=== PATIENT | female | born 1965 | race Caucasian/White ===

== ENCOUNTER 2018-11-02 10:05 | Inpatient (IN) | payer MEDICAID ==
[~2018-11-02] VITALS: Ht 167.6 cm; Wt 90.7 kg
[2018-11-02] MEDS ORDERED: COZAAR25 MG PO (10:14)
[2018-11-02 10:42] LABS: BASOPHILS 0.1 % (0-2); EOSINOPHILS 0 % (0-7); HEMATOCRIT 44.2 % (36.0-48.0); HEMOGLOBIN 15.7 g/dL (12-16); IMMATURE GRANULOCYTES 0.4 % (0-5); LYMPHOCYTES 3.7 % (15-50); MCH 32.4 pg (26.0-34.0); MCHC 35.5 g/dL (31.0-37.0); MCV 91.1 fL (80.0-100.0); MEAN PLATELET VOLUME 9.7 fL (7.4-10.4); MONOCYTES 2.5 % (2-11); NEUTROPHILS 93.3 % (40-80); PLATELET COUNT 272 10x3/uL (130-400); RBC 4.85 10x6/uL (4.00-5.40); RDW 13.5 % (11.5-14.5); WBC 19.3 10x3/uL (4.8-10.8)
[2018-11-02 10:54] LABS: APPEARANCE HAZY (CLEAR); BILIRUBIN NEGATIVE (NEGATIVE); COLOR YELLOW (YELLOW); GLUCOSE NEGATIVE (NEGATIVE); KETONE SMALL mg/dL (NEGATIVE); NITRITE NEGATIVE (NEGATIVE); PROTEIN 3+ mg/dL (NEGATIVE); SPECIFIC GRAVITY 1.015 (1.005-1.020); UROBILINOGEN NORMAL (NORMAL)
[2018-11-02 10:56] LABS: BACTERIA FEW /hpf (NONE SEEN); EPITHELIAL CELLS 0-5 /hpf (0-5); RED CELLS - URINE 0-5 /hpf (0-5); WHITE CELLS - URINE 0-5 /hpf (0-5)
[2018-11-02 11:02] LABS: ALBUMIN 2.8 g/dL (3.4-5.0); ANION GAP 14.9 mmol/L (8-16); BILIRUBIN - TOTAL 0.96 mg/dL (0.2-1.3); CALCIUM 8.6 mg/dL (8.5-10.1); CARBON DIOXIDE 25.6 mmol/L (21.0-32.0); CREATININE - SERUM 1.1 mg/dL (0.6-1.3); POTASSIUM - SERUM 3.5 mmol/L (3.5-5.1); PROTEIN - SERUM 8.5 g/dL (6.4-8.2)
[2018-11-02 13:27] VITALS: BP 152/88
--- NOTE | 2018-11-02 13:46 | NUR ---
PT ARRIVED TO UNIT TO ROOM 2221 IN WHEELCHAIR FROM ER IN STABLE CONDITON, FAMILY AT BEDSIDE, ORRIENTED TO ROOM, CL IN REACH WILL CONTINUE TO MONITOR
--- NOTE | 2018-11-02 13:47 | MORECARE ---
CASE MANAGEMENT DISCHARGE SUMMARY PATIENT: JORGE CHAIREZ UNIT: [id number] ADM DATE: 11/02/18 AGE: 53 : 63 SEX: F ROOM/BED: D.2222 AUTHOR: ANTHONY BUCHANAN PHYSICIAN: REFERRING PHYSICIAN: DONNA DAY MD DATE OF SERVICE: 11/02/18 Discharge Plan Patient Name: JORGE CHAIREZ [facility] [facility] 1965 Planned Disposition: Home Anticipated Discharge Date: 11/04/18 Discharge Date: Expected LOS: 2 Initial Reviewer: [email or web address] Initial Review Date: 11/02/2018 Generated: 11/02/18 2:47 pm Patient Name: JORGE CHAIREZ Page 22194 at 1347 All edits/amendments must be made on the electronic document DICTATION DATE: 11/02/18 1347 PUBLIC RELATIONS SENIOR ASSOCIATE: CATALINA 11/02/18 1347 RPT#: [id number] DC DATE: STATUS: ADM IN [facility] [address] [place] [address] END OF REPORT
--- NOTE | 2018-11-02 13:55 | MORECARE ---
CASE MANAGEMENT DISCHARGE SUMMARY PATIENT: JORGE MUNOZ UNIT: [id number] ADM DATE: 11/02/18 AGE: 53 : 63 SEX: F ROOM/BED: D.2222 AUTHOR: CHANEL,DOC PHYSICIAN: REFERRING PHYSICIAN: DONNA DAY MD DATE OF SERVICE: 11/02/18 Discharge Plan Patient Name: JORGE MUNOZ Facility: [facility]:[place] : 1965 Planned Disposition: Home Anticipated Discharge Date: 11/04/18 Discharge Date: Expected LOS: 2 Initial Reviewer: [email or web address] Initial Review Date: 11/02/2018 Generated: 11/02/18 2:55 pm DCP- Discharge Planning Updated by [email or web address]: Reina Pittman on 11/02/18 12:[address] Patient Name: JORGE MUNOZ Admission Status: ER Accout number: [id number] Admission Date: 11-02-2018 : 1965 Admission Diagnosis: Attending: DONNA DAY Current LOS: 1 Anticipated DC Date: 11-04-2018 Planned Disposition: Home Primary Insurance: UNINSURED DISCOUNT PLAN Discharge Planning Comments: CM met with patient and her , Rommel to complete initial dc planning assessment. CM educated patient on the CM role and verbal consent given by patient to complete assessment. Patient lives at home independently with her . At discharge patient plans to return home and feels this is a safe discharge. CM discussed availability of home health, rehab services, and medical equipment. Patient denied known discharge needs at this time. CM will continue to follow and will assist as needed with dc plans/needs. Icing Machine Operator: Reina Pittman RN, [facility] DCPIA - Discharge Planning Initial Assessment Updated by [email or web address]: Reina Pittman on 11/02/18 1:47 pm * Is the patient Alert and Oriented? Yes * How many steps to enter\exit or inside your home? * PCP Don't have a PCP. Moved here in July. * Pharmacy [facility] [address] * Preadmission Environment Home with Family * ADLs Independent * Equipment None * List name and contact numbers for known caregivers / representatives who currently or will assist patient after discharge: Rommel Munoz - spouse - [phone] * Verbal permission to speak to the caregivers and representatives has been obtained from the patient. Yes * Community resources currently utilized None * Additional services required to return to the preadmission environment? No * Can the patient safely return to the preadmission environment? Yes * Has this patient been hospitalized within the prior 30 days at any hospital? No Last DP export: 11/02/18 12:47 pm Patient Name: JORGE MUNOZ Page [id number] at 1355 All edits/amendments must be made on the electronic document DICTATION DATE: 11/02/18 1354 BOAT WASHER: CATALINA 11/02/18 1354 RPT#: [id number] DC DATE: STATUS: ADM IN [facility] [address] [place] [address] END OF REPORT
[2018-11-02 16:14] VITALS: BP 155/83
[2018-11-02 18:17] VITALS: BP 158/83
--- NOTE | 2018-11-02 19:00 | NUR ---
BEDSIDE REPORT RECEIVED AND CARE OF PT ASSUMED. PT RESTING IN SUPINE POSITION. O2 IN USE VIA NC AT 2L. IV IN RIGHT AC PATENT WITH NS INFUSING AT 125 ML / HR. WILL MONITOR FOR NEEDS.
[2018-11-02 21:04] VITALS: BP 123/81
--- NOTE | 2018-11-02 21:18 | NUR ---
HS MEDICATIONS GIVEN TO INCLUDE TYLENOL PER PRN ORDER FOR ELEVATED TEMP OF 100.6 DEGREES. WILL CONTINUE TO MONITOR FOR NEEDS.
[2018-11-03 00:11] VITALS: BP 124/72
[2018-11-03 04:36] VITALS: BP 145/85
[2018-11-03 05:46] LABS: BASOPHILS 0 % (0-2); EOSINOPHILS 0 % (0-7); HEMATOCRIT 37.9 % (36.0-48.0); HEMOGLOBIN 13.2 g/dL (12-16); IMMATURE GRANULOCYTES 0.9 % (0-5); LYMPHOCYTES 3.7 % (15-50); MCH 31.7 pg (26.0-34.0); MCHC 34.8 g/dL (31.0-37.0); MCV 90.9 fL (80.0-100.0); MEAN PLATELET VOLUME 9.4 fL (7.4-10.4); MONOCYTES 2.5 % (2-11); NEUTROPHILS 92.9 % (40-80); PLATELET COUNT 266 10x3/uL (130-400); RBC 4.17 10x6/uL (4.00-5.40); RDW 13.9 % (11.5-14.5); WBC 19.2 10x3/uL (4.8-10.8)
[2018-11-03 06:34] LABS: ALKALINE PHOSPHATASE 63 U/L (46-116); ALT (SGPT) 23 U/L (10-68); BILIRUBIN - TOTAL 0.62 mg/dL (0.2-1.3); CALC OSMOLALITY 254 mosm/kg (275-300); CALCIUM 7.5 mg/dL (8.5-10.1); CARBON DIOXIDE 22.9 mmol/L (21.0-32.0); CHLORIDE - SERUM 92 mmol/L (98-107); CREATININE - SERUM 0.7 mg/dL (0.6-1.3); GLUCOSE 121 mg/dL (74-106); POTASSIUM - SERUM 3.3 mmol/L (3.5-5.1); PROTEIN - SERUM 6.6 g/dL (6.4-8.2); SODIUM 127 mmol/L (136-145); UREA NITROGEN 10 mg/dL (7-18)
[2018-11-03 06:35] LABS: eGFR NON AFRICAN AMERICAN > 90 mL/min (90-120)
[2018-11-03 08:29] VITALS: BP 113/49
--- NOTE | 2018-11-03 10:20 | NUR ---
PT SAT UP IN CHAIR AT BEDSIDE FOR BREAKFAST, ASKED TO BE SL DUE TO IV POLE IN THE WAY OF HER TRYING TO GET TO RESTROOM, WHEEZING IN UPPER LOBES IN INHALATION, NO OTHER NEEDS VOICED, CONTINUE WITH PLAN OF CARE
--- NOTE | 2018-11-03 10:27 | NUR ---
PT REQUESTED PRN PAIN MEDICATION FOR CHÁVEZ AT A 5 FROM SCALE OF 0-10, ADMINISTERED PRN MEDS PER MAR
[2018-11-03 13:12] VITALS: Ht 167.6 cm; Wt 90.7 kg
--- NOTE | 2018-11-03 14:01 | NUR ---
I have reviewed this patient and I concur with the Shift Assessment completed by the Licensed Practical Nurse today this shift.
--- NOTE | 2018-11-03 14:02 | NUR ---
PT LYING IN BED ASLEEP WITH SPOUSE AT BEDSIDE, PT BREATHING RASPY, SPOUSE STATED PT DOES NOT WEAR O2 AT HOME, PT WAS NOT WEARING O2 WHEN I CAME IN AND STATING AT 85%. ADVISED PT SHE MUST WEAR IT BECAUSE WHEN SHE FALLS ASLEEP HER O2 DROPS, PT AND SPOUSE EXPRESSED UNDERSTANDING. CONTINUE WITH PLAN OF CARE
--- NOTE | 2018-11-03 14:33 | NUR ---
I have reviewed this patient and I concur with the Shift Assessment completed by the Licensed Practical Nurse today this shift.
[2018-11-03 16:47] VITALS: BP 146/92
[2018-11-03 20:00] VITALS: BP 142/63
[2018-11-04 04:00] VITALS: BP 127/80
[2018-11-04 05:57] LABS: BASOPHILS 0.1 % (0-2); EOSINOPHILS 0 % (0-7); HEMATOCRIT 36.3 % (36.0-48.0); HEMOGLOBIN 12.7 g/dL (12-16); LYMPHOCYTES 3.3 % (15-50); MCH 31.5 pg (26.0-34.0); MCV 90.1 fL (80.0-100.0); MEAN PLATELET VOLUME 9.4 fL (7.4-10.4); MONOCYTES 3.4 % (2-11); NEUTROPHILS 92.2 % (40-80); PLATELET COUNT 295 10x3/uL (130-400); RBC 4.03 10x6/uL (4.00-5.40); RDW 14.1 % (11.5-14.5); WBC 19.2 10x3/uL (4.8-10.8)
[2018-11-04 06:25] LABS: ALBUMIN 1.9 g/dL (3.4-5.0); ALKALINE PHOSPHATASE 71 U/L (46-116); BILIRUBIN - TOTAL 0.43 mg/dL (0.2-1.3); CALCIUM 7.6 mg/dL (8.5-10.1); CARBON DIOXIDE 23.4 mmol/L (21.0-32.0); CHLORIDE - SERUM 94 mmol/L (98-107); CREATININE - SERUM 0.7 mg/dL (0.6-1.3); POTASSIUM - SERUM 3.7 mmol/L (3.5-5.1); PROTEIN - SERUM 6.9 g/dL (6.4-8.2); SODIUM 130 mmol/L (136-145); UREA NITROGEN 11 mg/dL (7-18); eGFR NON AFRICAN AMERICAN > 90 mL/min (90-120)
[2018-11-04 06:26] LABS: ALT (SGPT) 37 U/L (10-68); CALC OSMOLALITY 265 mosm/kg (275-300); GLUCOSE 204 mg/dL (74-106)
--- NOTE | 2018-11-04 07:03 | NUR ---
IV LEAKING AND REMOVED.
--- NOTE | 2018-11-04 07:30 | NUR ---
RECEIVED A/A/OX4. DENIES ANY PAIN OR DISCOMFORT AT PRESENT TIME AND VOICES NO REQUESTS. ASSESSMENT COMPLETED. BED IN LOWEST POSITION WITH WHEELS LOCKED, SIDERAILS UP X2 AND CALL LIGHT IN REACH. WILL CONTINUE POC.
[2018-11-04 09:24] VITALS: BP 118/72
[2018-11-04 12:00] VITALS: BP 115/76
[2018-11-04 17:43] VITALS: BP 120/74
[2018-11-04 20:00] VITALS: BP 130/89
--- NOTE | 2018-11-04 20:00 | NUR ---
ASSESSMENT PER FLOWSHEET. IV PATENT RT ARM SALINE LOCKED. IV PUMP HAD BEEN TURNED OFF. PT REFUSED TO HAVE FLUIDS GOING PT ALSO UPSET WITH DAYS SHIFT NURSE SHE HAD TOLD HER IT HAD BEEPING FOR A LONG TIME AND THE NURSE NEVER CAME BACK.
--- NOTE | 2018-11-04 21:35 | NUR ---
C/O HEADACHE TYLENOL 650MG PO GIVEN FOR PAIN CONTROL. IV LEFT AT SALINE LOCKED PT TAKING PO WELL.WILL CONNECT WHEN TIME FOR ANY ANTIBIOTICS. PT ON ROOM AIR. SITTING ON SIDE OF BED.
--- NOTE | 2018-11-05 00:19 | NUR ---
EYES CLOSED RESPIRATIONS WITH EASE AND UNLABORED.
[2018-11-05 04:00] VITALS: BP 130/85
[2018-11-05 05:56] LABS: BASOPHILS 0.1 % (0-2); EOSINOPHILS 0 % (0-7); HEMOGLOBIN 12.4 g/dL (12-16); IMMATURE GRANULOCYTES 1.5 % (0-5); LYMPHOCYTES 4.2 % (15-50); MCH 31.6 pg (26.0-34.0); MCHC 34.4 g/dL (31.0-37.0); MCV 91.8 fL (80.0-100.0); MEAN PLATELET VOLUME 9.6 fL (7.4-10.4); MONOCYTES 3.3 % (2-11); NEUTROPHILS 90.9 % (40-80); PLATELET COUNT 353 10x3/uL (130-400); RBC 3.92 10x6/uL (4.00-5.40); RDW 14.4 % (11.5-14.5); WBC 17.9 10x3/uL (4.8-10.8)
[2018-11-05 06:03] LABS: ALBUMIN 1.9 g/dL (3.4-5.0); ALKALINE PHOSPHATASE 85 U/L (46-116); BILIRUBIN - TOTAL 0.37 mg/dL (0.2-1.3); CARBON DIOXIDE 27.9 mmol/L (21.0-32.0); CHLORIDE - SERUM 96 mmol/L (98-107); CREATININE - SERUM 0.8 mg/dL (0.6-1.3); GLUCOSE 226 mg/dL (74-106); PROTEIN - SERUM 6.6 g/dL (6.4-8.2); SODIUM 134 mmol/L (136-145); eGFR NON AFRICAN AMERICAN 79 mL/min (90-120)
[2018-11-05 06:14] LABS: ALT (SGPT) 126 U/L (10-68); CALC OSMOLALITY 275 mosm/kg (275-300); POTASSIUM - SERUM 4.4 mmol/L (3.5-5.1); UREA NITROGEN 14 mg/dL (7-18)
[2018-11-05 09:51] VITALS: BP 133/76
[2018-11-05] MEDS ORDERED: ALBUTEROL2.5 MG/3 M INH (13:15)
[2018-11-05] MEDS ORDERED: FLORAJEN3 CAPS460 MG PO (13:16)
[2018-11-05] MEDS ORDERED: PREDNISONE10 MG PO (13:16)
[2018-11-05] MEDS ORDERED: ZITHROMAX500 MG PO (13:16)
[2018-11-05] MEDS ORDERED: OMNICEF300 MG PO (13:16)
[2018-11-05] MEDS ORDERED: Nicoderm [PBKC] TRANSDERM (13:17)
[2018-11-05 14:03] VITALS: BP 116/65
--- NOTE | 2018-11-05 14:26 | MORECARE ---
CASE MANAGEMENT DISCHARGE SUMMARY PATIENT: JORGE MUNOZ UNIT: [id number] ADM DATE: 11/02/18 AGE: 53 : 63 SEX: F ROOM/BED: D.2222 AUTHOR: CHANEL,DOC PHYSICIAN: REFERRING PHYSICIAN: DONNA DYA MD DATE OF SERVICE: 11/05/18 Discharge Plan Patient Name: JORGE MUNOZ Facility: [facility]:[place] : 1965 Planned Disposition: Home Anticipated Discharge Date: 11/04/18 Discharge Date: Expected LOS: 2 Initial Reviewer: [email or web address] Initial Review Date: 11/02/2018 Generated: 11/05/18 3:26 pm Comments DCP- Discharge Planning Updated by [email or web address]: Tisha Morales on 11/05/18 1:[address] Received discharge orders. She is in agreement to discharge. States she only needs Medicaid. I called Brandon Tang in [employer] data and she states she should receive something in the mail in a couple of weeks when approved. Brandon states she can call her for updates if she would like to. I provided her with Brandon Tang's number [phone]. She declines need for DME or home health. CM will continue to follow and assist with discharge planning/needs. DCP- Discharge Planning Updated by [email or web address]: Reina Pittman on 11/02/18 12:[address] Patient Name: JOREG MUNOZ Admission Status: ER Accout number: [id number] Admission Date: 11-02-2018 : 1965 Admission Diagnosis: Attending: DONNA DAY Current LOS: 1 Anticipated DC Date: 11-04-2018 Planned Disposition: Home Primary Insurance: UNINSURED DISCOUNT PLAN Discharge Planning Comments: CM met with patient and her , Rommel to complete initial dc planning assessment. CM educated patient on the CM role and verbal consent given by patient to complete assessment. Patient lives at home independently with her . At discharge patient plans to return home and feels this is a safe discharge. CM discussed availability of home health, rehab services, and medical equipment. Patient denied known discharge needs at this time. CM will continue to follow and will assist as needed with dc plans/needs. Weight And Balance Control Agent: Reina Pittman RN, [facility] DCPIA - Discharge Planning Initial Assessment Updated by [email or web address]: Reina Pittman on 11/02/18 1:47 pm * Is the patient Alert and Oriented? Yes * How many steps to enter\exit or inside your home? * PCP Don't have a PCP. Moved here in July. * Pharmacy [facility] [address] * Preadmission Environment Home with Family * ADLs Independent * Equipment None * List name and contact numbers for known caregivers / representatives who currently or will assist patient after discharge: Rommel Munoz - spouse - [phone] * Verbal permission to speak to the caregivers and representatives has been obtained from the patient. Yes * Community resources currently utilized None * Additional services required to return to the preadmission environment? No * Can the patient safely return to the preadmission environment? Yes * Has this patient been hospitalized within the prior 30 days at any hospital? No Last DP export: 11/02/18 12:55 pm Patient Name: JORGE MUNOZ Page [id number] at 1426 All edits/amendments must be made on the electronic document DICTATION DATE: 11/05/18 1425 MANUFACTURING QUALITY INSPECTOR: CATALINA 11/05/18 1425 RPT#: [id number] DC DATE: STATUS: ADM IN [facility] [address] [place] [address] END OF REPORT
[2018-11-05] MEDS ORDERED: ALBUTEROL SULF8.5 GM INH (15:23)
--- NOTE | 2018-11-05 15:40 | MORECARE ---
CASE MANAGEMENT DISCHARGE SUMMARY PATIENT: JORGE MUNOZ UNIT: [id number] ADM DATE: 11/02/18 AGE: 53 : 63 SEX: F ROOM/BED: D.2222 AUTHOR: CHANELDOC PHYSICIAN: REFERRING PHYSICIAN: DONNA DAY MD DATE OF SERVICE: 11/05/18 Discharge Plan Patient Name: JORGE MUNOZ Facility: [facility]:[place] : 1965 Planned Disposition: Home Anticipated Discharge Date: 11/04/18 Discharge Date: Expected LOS: 2 Initial Reviewer: [email or web address] Initial Review Date: 11/02/2018 Generated: 11/05/18 4:40 pm Comments DCP- Discharge Planning Updated by [email or web address]: Tisha Morales on 11/05/18 2:[address] I spoke with Shireen Raygoza about nebulizer, she states she had meant to order an inhaler. Dr. Mendez here and he went to office and gave her 2 free samples from his office. I gave her a coupon from [employer] but informed her the coupon would not work once she received her Medicaid. She understands. I called the pharmacy to tell them she does not need the albuterol updraft med. CM will continue to follow and assist with discharge planning/needs. DCP- Discharge Planning Updated by [email or web address]: Tisha Morales on 11/05/18 1:[address] Received discharge orders. She is in agreement to discharge. States she only needs Medicaid. I called Brandon Tang in med data and she states she should receive something in the mail in a couple of weeks when approved. Brandon states she can call her for updates if she would like to. I provided her with Brandon Tang's number [phone]. She declines need for DME or home health. CM will continue to follow and assist with discharge planning/needs. DCP- Discharge Planning Updated by [email or web address]: Reina Pittman on 11/02/18 12:[address] Patient Name: JORGE MUNOZ Admission Status: ER Accout number: [id number] Admission Date: 11-02-2018 : 1965 Admission Diagnosis: Attending: DONNA DAY Current LOS: 1 Anticipated DC Date: 11-04-2018 Planned Disposition: Home Primary Insurance: UNINSURED DISCOUNT PLAN Discharge Planning Comments: CM met with patient and her , Rommel to complete initial dc planning assessment. CM educated patient on the CM role and verbal consent given by patient to complete assessment. Patient lives at home independently with her . At discharge patient plans to return home and feels this is a safe discharge. CM discussed availability of home health, rehab services, and medical equipment. Patient denied known discharge needs at this time. CM will continue to follow and will assist as needed with dc plans/needs. Medical Art Therapist: Reina Pittman RN, [facility] DCPIA - Discharge Planning Initial Assessment Updated by [email or web address]: Reina Pittman on 11/02/18 1:47 pm * Is the patient Alert and Oriented? Yes * How many steps to enter\exit or inside your home? * PCP Don't have a PCP. Moved here in July. * Pharmacy [facility] [address] * Preadmission Environment Home with Family * ADLs Independent * Equipment None * List name and contact numbers for known caregivers / representatives who currently or will assist patient after discharge: Rommel Munoz - spouse - [phone] * Verbal permission to speak to the caregivers and representatives has been obtained from the patient. Yes * Community resources currently utilized None * Additional services required to return to the preadmission environment? No * Can the patient safely return to the preadmission environment? Yes * Has this patient been hospitalized within the prior 30 days at any hospital? No Last DP export: 11/05/18 1:26 pm Patient Name: JORGE MUNOZ Page 34891 at 1540 All edits/amendments must be made on the electronic document DICTATION DATE: 11/05/18 1540 INVENTORY COORDINATOR: CATALINA 11/05/18 1540 RPT#: [id number] DC DATE: STATUS: ADM IN [facility] [address] [place] [address] END OF REPORT
--- NOTE | 2018-11-06 07:05 | MORECARE ---
CASE MANAGEMENT DISCHARGE SUMMARY PATIENT: JORGE MUNOZ UNIT: [id number] ADM DATE: 11/02/18 AGE: 53 : 63 SEX: F ROOM/BED: D.2222 AUTHOR: CHANEL,DOC PHYSICIAN: REFERRING PHYSICIAN: DONNA DAY MD DATE OF SERVICE: 11/06/18 Discharge Plan Patient Name: JORGE MUNOZ Facility: [facility]:[place] : 1965 Planned Disposition: Home Anticipated Discharge Date: 11/04/18 Discharge Date: 11/05/2018 Expected LOS: 2 Initial Reviewer: [email or web address] Initial Review Date: 11/02/2018 Generated: 11/06/18 8:05 am Comments DCP- Discharge Planning Updated by [email or web address]: iTsha Morales on 11/05/18 2:[address] I spoke with Shireen Raygoza about nebulizer, she states she had meant to order an inhaler. Dr. Mendez here and he went to office and gave her 2 free samples from his office. I gave her a coupon from [employer] but informed her the coupon would not work once she received her Medicaid. She understands. I called the pharmacy to tell them she does not need the albuterol updraft med. CM will continue to follow and assist with discharge planning/needs. DCP- Discharge Planning Updated by [email or web address]: Tisha Morales on 11/05/18 1:[address] Received discharge orders. She is in agreement to discharge. States she only needs Medicaid. I called Brandon Tang in med data and she states she should receive something in the mail in a couple of weeks when approved. Brandon states she can call her for updates if she would like to. I provided her with Brandon Tang's number [phone]. She declines need for DME or home health. CM will continue to follow and assist with discharge planning/needs. DCP- Discharge Planning Updated by [email or web address]: Reina Pittman on 11/02/18 12:[address] Patient Name: JORGE MUNOZ Admission Status: ER Accout number: [id number] Admission Date: 11-02-2018 : 1965 Admission Diagnosis: Attending: DONNA DAY Current LOS: 1 Anticipated DC Date: 11-04-2018 Planned Disposition: Home Primary Insurance: UNINSURED DISCOUNT PLAN Discharge Planning Comments: CM met with patient and her , Rommel to complete initial dc planning assessment. CM educated patient on the CM role and verbal consent given by patient to complete assessment. Patient lives at home independently with her . At discharge patient plans to return home and feels this is a safe discharge. CM discussed availability of home health, rehab services, and medical equipment. Patient denied known discharge needs at this time. CM will continue to follow and will assist as needed with dc plans/needs. Corner Cutter Machine Operator: Reina Pittman RN, [facility] DCPIA - Discharge Planning Initial Assessment Updated by [email or web address]: Reina Pittman on 11/02/18 1:47 pm * Is the patient Alert and Oriented? Yes * How many steps to enter\exit or inside your home? * PCP Don't have a PCP. Moved here in July. * Pharmacy [facility] [address] * Preadmission Environment Home with Family * ADLs Independent * Equipment None * List name and contact numbers for known caregivers / representatives who currently or will assist patient after discharge: Rommel Munoz - spouse - [phone] * Verbal permission to speak to the caregivers and representatives has been obtained from the patient. Yes * Community resources currently utilized None * Additional services required to return to the preadmission environment? No * Can the patient safely return to the preadmission environment? Yes * Has this patient been hospitalized within the prior 30 days at any hospital? No Last DP export: 11/05/18 2:40 pm Patient Name: JORGE MUNOZ Page [id number] at 0705 All edits/amendments must be made on the electronic document DICTATION DATE: 11/06/18703 SECURITY GUARDS DISPATCHER: CATALINA 11/06/18 07 RPT#: [id number] DC DATE:11/05/18 STATUS: DIS IN [facility] [address] [place] [address] END OF REPORT
== END 2018-11-05 16:47 | disposition home or self-care (01) | DRG 193 ==
LOC: D.ER 10:05 → D.MS 12:53
PROVIDERS: Emergency Medicine; Family Medicine; ADMIT Internal Medicine Nephrology; ATTEND Internal Medicine Nephrology
DX: J18.9 Pneumonia, unspecified organism (principal); J96.01 Acute respiratory failure with hypoxia; E87.1 Hypo-osmolality and hyponatremia; N17.9 Acute kidney failure, unspecified; F17.213 Nicotine dependence, cigarettes, with withdrawal; J44.0 Chronic obstructive pulmonary disease with (acute) lower respiratory infection; J44.1 Chronic obstructive pulmonary disease with (acute) exacerbation; R04.2 Hemoptysis

== ENCOUNTER → 2018-12-19 08:47 | Outpatient (CLI) | payer MEDICAID ==
[~2018-12-19 08:47] MED LIST: ALBUTEROL SULF8.5 GM INH; ALBUTEROL2.5 MG/3 M INH; COZAAR25 MG PO; FLORAJEN3 CAPS460 MG PO; Nicoderm [PBKC] TRANSDERM; OMNICEF300 MG PO; PREDNISONE10 MG PO; ZITHROMAX500 MG PO
== END | disposition home or self-care (01) ==
LOC: D.RT 08:47
PROVIDERS: ATTEND Internal Medicine Pulmonary Disease
DX: J18.9 Pneumonia, unspecified organism (principal)